=== PATIENT | female | born 1975 | race Caucasian/White ===

== ENCOUNTER 2016-10-24 06:42 | Inpatient (IN) | payer MEDICARE, MEDICAID ==
[2016-10-24 07:19] LABS: Hematocrit 42 % (35-47); Hemoglobin 14.2 g/dl (12.0-16.0); Mean Corpuscular HGB Conc 34 g/dl (31-36); Mean Corpuscular Hemoglobin 30 pg (27-31); Mean Corpuscular Volume 90 fL (80-97); Mean Platelet Volume 7 um3 (7.4-10.4); Red Blood Count 4.69 10^6/ul (4.0-5.4); Red Cell Distribution Width 16 % (10.5-15); White Blood Count 6.7 10^3/ul (3.5-10.8)
[2016-10-24 07:21] LABS: Add Diff/Slide Review? Slide Review Added; Comments Flag Yes
[2016-10-24 07:35] LABS: ALT 4 U/L (7-52); AST 16 U/L (13-39); Albumin 4.5 g/dL (3.2-5.2); Alkaline Phosphatase 52 U/L (34-104); Anion Gap 6 mmol/L (2-11); BUN/Creatinine Ratio 15.9 (8-20); Blood Urea Nitrogen 14 mg/dL (6-24); CO2 Carbon Dioxide 29 mmol/L (22-32); Calcium 9.6 mg/dL (8.6-10.3); Chloride 101 mmol/L (101-111); EGFR African American 90.6 (>60); EGFR Non-African American 70.5 (>60); Globulin 3.2 g/dL (2-4); Glucose 85 mg/dL (70-100); Potassium 3.5 mmol/L (3.5-5.0); Sodium 136 mmol/L (133-145); Total Protein 7.7 g/dL (6.4-8.9)
[2016-10-24 07:41] LABS: Benzodiazepine Urine Screen None Detected (None Detect)
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
[2016-10-24 07:57] LABS: Urine Bacteria Absent (Absent); Urine Bilirubin Negative (Negative); Urine Glucose Negative (Negative); Urine Nitrite Negative (Negative)
[2016-10-24 08:04] LABS: Acetaminophen < 15 mcg/mL; Alcohol < 10 mg/dL (<10); Salicylate < 2.50 mg/dL (<30)
[2016-10-24 08:14] LABS: TSH (Thyroid Stimulating Horm) 3.08 mcIU/mL (0.34-5.60)
[2016-10-24] MEDS ORDERED: Nicotine Inhaler* 10 MG AMP INH PRN (11:05)
[2016-10-24] MEDS ORDERED: diPHENhydraMINE PO* 50 MG PO PRN (13:02)
[2016-10-24] MEDS: clonazePAM TAB(*) 1 MG PO SCH (20:57)
[2016-10-24] MEDS: CMCS: Lurasidone (NF) 20 MG TAB PO SCH (20:57)
[2016-10-24] MEDS: Amitriptyline TAB* 10 MG PO SCH (20:57)
[2016-10-24] MEDS ORDERED: Divalproex DR TAB(*) 500 MG PO SCH (21:00)
--- NOTE | 2016-10-25 06:26 | PN ---
Progress Note - Progress Note Note: Notified by RN of Critical value of Valproic Acid level -directed her to contact poison control for recommendations -stopped Depakote -ordered stat VPA level Impression-likely inadvertent toxic level. Generally cases of valproate ovedose are benign. Patient has not been demonstrating any of these: -hyperthermia/hypothermia -tachycardia/hypotension -respiratory depression -stupor/coma, ataxia Plan: stat VPA level to determine trend, poison control consult, q4h vitals, neuro checks.
[2016-10-25] MEDS ORDERED: Mouth Piece, Nicotine* 1 EACH CARTRIDGE ONE (07:36)
[2016-10-25] MEDS: Oxybutynin XL TAB* 5 MG PO SCH (07:37)
[2016-10-25 07:46] LABS: ALT 4 U/L (7-52); Alkaline Phosphatase 38 U/L (34-104); BUN/Creatinine Ratio 19.7 (8-20); Blood Urea Nitrogen 13 mg/dL (6-24); CO2 Carbon Dioxide 24 mmol/L (22-32); Calcium 8.5 mg/dL (8.6-10.3); Chloride 105 mmol/L (101-111); EGFR African American 126.3 (>60); EGFR Non-African American 98.2 (>60); Globulin 2.4 g/dL (2-4); Glucose 83 mg/dL (70-100); Sodium 135 mmol/L (133-145); Total Protein 5.4 g/dL (6.4-8.9)
--- NOTE | 2016-10-25 08:23 | PN ---
Progress Note - Progress Note Note: Psychiatry Case discussed with Dr. Tena, we agreed- - based on apparent subacute toxicity, further evaluations needed (hospitalist consult to assist with that) - based on favorable VPA trend, and patients Vitals and neuro status, she is in the clear as to acute cardiovascular risk and LOT ASSOCIATE/respiratory effect, and does not require transfer to medical floor.
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
[2016-10-25] MEDS: Nicotine PATCH 14 MG/24 HR* PATCH TRANSDERM SCH (12:58)
--- NOTE | 2016-10-25 13:45 | PN ---
MHU: Group Therapy Note - Service Type Service Type: 63661 Group Psychotherapy - Cognitive Behavioral Group Therapy ( CBT):Patient was attentive and participatory in CBT programming this morning, and remained in good behavioral control. Patient expressed positive insights regarding relevant treatment interventions and goals.
[2016-10-25] MEDS: Amitriptyline TAB* 10 MG PO SCH (20:13)
[2016-10-25] MEDS: clonazePAM TAB(*) 1 MG PO SCH (20:13)
[2016-10-25] MEDS: CMCS: Lurasidone (NF) 20 MG TAB PO SCH (20:14)
[2016-10-25] MEDS: Nicotine Patch Removal NOTE PATCH OFF SCH (20:15)
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
[2016-10-26 07:46] LABS: Albumin 3.2 g/dL (3.2-5.2); BUN/Creatinine Ratio 18.3 (8-20); Calcium 9.1 mg/dL (8.6-10.3); EGFR African American 116.1 (>60); EGFR Non-African American 90.3 (>60); Globulin 2.4 g/dL (2-4); Potassium 4.6 mmol/L (3.5-5.0); Total Bilirubin 0.2 mg/dL (0.2-1.0); Total Protein 5.6 g/dL (6.4-8.9)
[2016-10-26] MEDS: Nicotine PATCH 14 MG/24 HR* PATCH TRANSDERM SCH (08:37)
[2016-10-26] MEDS: Oxybutynin XL TAB* 5 MG PO SCH ×2 (08:38→20:34)
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
--- NOTE | 2016-10-26 17:02 | PN ---
Subjective Date of Service: 10/26/16 Interval History: Patient continues to feel well. She reports some anxiety, but denies abdominal pain, n/v, CP or SOB. Objective Active Medications: Amitriptyline HCl (Elavil Tab*) 10 mg PO BEDTIME [facility] Last Admin: 10/25/16 20:13 Dose: 10 mg Clonazepam (Klonopin Tab(*)) 0.5 mg PO BEDTIME [facility] Diphenhydramine HCl (Benadryl Po*) 50 mg PO BEDTIME PRN PRN Reason: INSOMNIA Lurasidone HCl (Latuda (Nf)) 60 mg PO BEDTIME [facility] Last Admin: 10/25/16 20:14 Dose: 60 mg Nicotine (Nicotine Inhaler*) 10 mg INH Q2H PRN PRN Reason: CRAVING Last Admin: 10/25/16 07:37 Dose: 10 mg Nicotine (Nicotine Patch 14 Mg/24 Hr*) 1 patch TRANSDERM DAILY@0800 [facility] Last Admin: 10/26/16 08:37 Dose: 1 patch Oxybutynin Chloride (Ditropan Xl Tab*) 5 mg PO BEDTIME [facility] Pharmacy Profile Note (Nicotine Patch Removal Note*) 1 note PATCH OFF 2100 [facility] Last Admin: 10/25/16 20:15 Dose: 1 note Vital Signs: Temp Pulse Resp BP Pulse Ox 97.8 F 80 16 106/63 100 10/26/16 11:58 10/26/16 15:51 10/26/16 11:58 10/26/16 15:51 10/26/16 11:58 Appearance: Well appearing, mildly anxious, but in NAD Respiratory: Symmetrical Chest Expansion and Respiratory Effort, Clear to Auscultation Cardiovascular: NL Sounds; No Murmurs; No JVD, RRR Extremities: No Edema Skin: No Rash or Ulcers Neurological: Alert and Oriented x 3 Result Diagrams: 10/24/16 07:00 10/26/16 07:09 Additional Lab and Data: Laboratory Tests 10/25/16 10/26/16 10/26/16 06:58 07:09 07:10 Total Bilirubin 0.20 AST 13 ALT 3 L Alkaline Phosphatase 45 Ammonia 65 H 56 H Laboratory Tests 10/24/16 10/25/16 10/26/16 07:00 06:58 07:09 Valproic Acid 225.0 H* 164.0 H* 69.0 Assess/Plan/Problems-Billing Assessment: This is a 41 yo female admitted to the [facility], Hospitalist service has been asked to consult for Depakote toxicity that is likely chronic. - Patient Problems (1) Valproic acid toxicity Comment: Valproic acid levels have improved to therapeutic range No symptoms of toxicity No transaminitis, mildly elevated ammonia that has improved EKG shows a normal QRS length and QTc Depakote may be resumed at half of her prior dose if clinically indicated at this time. Status and Disposition: Continued care per psychiatry. Hospitalist group will sign off at this time but are happy to re-examine if there is an acute change in status.
[2016-10-26] MEDS: Amitriptyline TAB* 10 MG PO SCH (20:33)
[2016-10-26] MEDS: CMCS: Lurasidone (NF) 20 MG TAB PO SCH (20:33)
[2016-10-26] MEDS: clonazePAM TAB(*) 0.5 MG PO SCH (20:33)
[2016-10-26] MEDS: Nicotine Patch Removal NOTE PATCH OFF SCH (20:35)
[2016-10-27] MEDS: Nicotine PATCH 14 MG/24 HR* PATCH TRANSDERM SCH (09:11)
[2016-10-27] MEDS: Oxybutynin XL TAB* 5 MG PO SCH (20:13)
[2016-10-27] MEDS: Amitriptyline TAB* 10 MG PO SCH (20:13)
[2016-10-27] MEDS: clonazePAM TAB(*) 0.5 MG PO SCH (20:14)
[2016-10-27] MEDS: CMCS: Lurasidone (NF) 20 MG TAB PO SCH (20:14)
[2016-10-27] MEDS: Nicotine Patch Removal NOTE PATCH OFF SCH (20:15)
[2016-10-28] MEDS ORDERED: Influenza VAC *QUAD* 2016-17* 0.5 ML SYRINGE IM ONE (09:00)
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
[2016-10-28] MEDS: Nicotine PATCH 14 MG/24 HR* PATCH TRANSDERM SCH (09:31)
[2016-10-28] MEDS: Oxybutynin XL TAB* 5 MG PO SCH (20:06)
[2016-10-28] MEDS: CMCS: Lurasidone (NF) 20 MG TAB PO SCH (20:06)
[2016-10-28] MEDS: Amitriptyline TAB* 10 MG PO SCH (20:06)
[2016-10-28] MEDS: clonazePAM TAB(*) 0.5 MG PO SCH (20:06)
[2016-10-28] MEDS: Nicotine Patch Removal NOTE PATCH OFF SCH (20:08)
[2016-10-29] MEDS: Nicotine PATCH 14 MG/24 HR* PATCH TRANSDERM SCH (09:37)
--- NOTE | 2016-10-29 11:44 | PN ---
MHU: Group Therapy Note - Service Type Service Type: [id number] Group Psychotherapy - Cognitive Behavioral Group Therapy ( CBT):Patient was attentive and participatory in CBT programming this morning, and remained in good behavioral control. Patient expressed positive insights regarding relevant treatment interventions and goals.
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
[2016-10-29] MEDS: Gabapentin CAP(*) 100 MG PO SCH ×2 (13:59→20:08)
[2016-10-29] MEDS: Amitriptyline TAB* 10 MG PO SCH (20:08)
[2016-10-29] MEDS: Oxybutynin XL TAB* 5 MG PO SCH (20:09)
[2016-10-29] MEDS: CMCS: Lurasidone (NF) 20 MG TAB PO SCH (20:12)
[2016-10-29] MEDS: Nicotine Patch Removal NOTE PATCH OFF SCH (20:12)
[2016-10-30] MEDS: Nicotine PATCH 14 MG/24 HR* PATCH TRANSDERM SCH (08:37)
[2016-10-30] MEDS: Gabapentin CAP(*) 100 MG PO SCH ×3 (08:38→20:25)
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
--- NOTE | 2016-10-30 12:51 | PN ---
MHU: Group Therapy Note - Service Type Service Type: [id number] Group Psychotherapy - Cognitive Behavioral Group Therapy ( CBT):Patient was attentive and participatory in CBT programming this morning, and remained in good behavioral control. Patient expressed positive insights regarding relevant treatment interventions and goals.
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
[2016-10-30] MEDS: Oxybutynin XL TAB* 5 MG PO SCH (20:25)
[2016-10-30] MEDS: CMCS: Lurasidone (NF) 20 MG TAB PO SCH (20:25)
[2016-10-30] MEDS: Amitriptyline TAB* 10 MG PO SCH (20:25)
[2016-10-30] MEDS: Nicotine Patch Removal NOTE PATCH OFF SCH (20:26)
[2016-10-31 07:31] LABS: Hematocrit 36 % (35-47); Hemoglobin 11.7 g/dl (12.0-16.0); Mean Corpuscular HGB Conc 33 g/dl (31-36); Mean Corpuscular Hemoglobin 30 pg (27-31); Mean Corpuscular Volume 91 fL (80-97); Mean Platelet Volume 7 um3 (7.4-10.4); Red Blood Count 3.91 10^6/ul (4.0-5.4); Red Cell Distribution Width 16 % (10.5-15); White Blood Count 9.6 10^3/ul (3.5-10.8)
[2016-10-31 07:34] LABS: Add Diff/Slide Review? Slide Review Added; Comments Flag Yes
[2016-10-31 07:40] LABS: ALT 11 U/L (7-52); AST 16 U/L (13-39); Albumin 3.5 g/dL (3.2-5.2); Alkaline Phosphatase 46 U/L (34-104); Globulin 2.7 g/dL (2-4); Total Protein 6.2 g/dL (6.4-8.9)
[2016-10-31] MEDS: Gabapentin CAP(*) 100 MG PO SCH ×2 (08:22→14:12)
[2016-10-31] MEDS: Nicotine PATCH 14 MG/24 HR* PATCH TRANSDERM SCH (08:23)
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
--- NOTE | 2016-10-31 11:31 | PN ---
[facility]: Group Therapy Note - Service Type Service Type: 98811 Group Psychotherapy - Cognitive Behavioral Group Therapy ( CBT):Patient was attentive and participatory in CBT programming this morning, and remained in good behavioral control. Patient expressed positive insights regarding relevant treatment interventions and goals.
[2016-10-31 14:47] LABS: Valproic Acid < 13.0 mcg/mL (50-100)
[2016-10-31 16:10] VITALS: BP 123/55
== END 2016-10-31 15:33 | disposition home or self-care (01) | DRG 884 ==
LOC: ED 06:42 → BSU 14:15
PROVIDERS: ADMIT Psychiatry & Neurology Psychiatry; ATTEND Psychiatry & Neurology Psychiatry
DX: F09 Unspecified mental disorder due to known physiological condition (principal); F31.81 Bipolar II disorder; F43.10 Post-traumatic stress disorder, unspecified; F14.10 Cocaine abuse, uncomplicated; F10.10 Alcohol abuse, uncomplicated; F12.10 Cannabis abuse, uncomplicated; F15.10 Other stimulant abuse, uncomplicated; T42.6X5A Adverse effect of other antiepileptic and sedative-hypnotic drugs, initial encounter; F90.9 Attention-deficit hyperactivity disorder, unspecified type; F60.3 Borderline personality disorder; Y92.9 Unspecified place or not applicable; Z81.3 Family history of other psychoactive substance abuse and dependence; Z79.899 Other long term (current) drug therapy; Z81.8 Family history of other mental and behavioral disorders
CPT/HCPCS: 36415; 80053; 80076; 80164; 80307; 80320; 80329; 81003; 81015; 82140; 84443; 85025; 87086; 90853; 93005; 96102; 99222; 99231; 99238; A9270-GY; G0480

== ENCOUNTER 2016-12-24 22:41 | Inpatient (IN) | payer MEDICARE, MEDICAID ==
[2016-12-24 23:38] LABS: Urine Bacteria Absent (Absent); Urine Bilirubin Negative (Negative); Urine Glucose Negative (Negative); Urine Nitrite Negative (Negative)
[2016-12-25] LABS: Hematocrit 38 % (35-47); Hemoglobin 12.8 g/dl (12.0-16.0); Mean Corpuscular HGB Conc 34 g/dl (31-36); Mean Corpuscular Hemoglobin 30 pg (27-31); Mean Corpuscular Volume 89 fL (80-97); Mean Platelet Volume 6 um3 (7.4-10.4); Red Blood Count 4.26 10^6/ul (4.0-5.4); Red Cell Distribution Width 14 % (10.5-15); White Blood Count 10.2 10^3/ul (3.5-10.8)
[2016-12-25 00:07] LABS: Benzodiazepine Urine Screen None Detected (None Detect)
[2016-12-25 00:12] LABS: ALT 11 U/L (7-52); AST 17 U/L (13-39); Albumin 4.5 g/dL (3.2-5.2); Alkaline Phosphatase 69 U/L (34-104); Anion Gap 11 mmol/L (2-11); BUN/Creatinine Ratio 16.3 (8-20); Blood Urea Nitrogen 13 mg/dL (6-24); CO2 Carbon Dioxide 23 mmol/L (22-32); Calcium 9.8 mg/dL (8.6-10.3); Chloride 102 mmol/L (101-111); EGFR African American 101.2 (>60); EGFR Non-African American 78.7 (>60); Globulin 2.9 g/dL (2-4); Glucose 161 mg/dL (70-100); Potassium 3.4 mmol/L (3.5-5.0); Sodium 136 mmol/L (133-145); Total Protein 7.4 g/dL (6.4-8.9)
[2016-12-25 00:36] LABS: Acetaminophen < 15 mcg/mL; Alcohol < 10 mg/dL (<10); Salicylate < 2.50 mg/dL (<30)
[2016-12-25 01:08] LABS: TSH (Thyroid Stimulating Horm) 0.84 mcIU/mL (0.34-5.60)
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
--- NOTE | 2016-12-25 08:24 | PN ---
Progress Note - Progress Note Note: Patient complains of right eye contact lens stuck in the eye. She is unable to visualized the contact and has bee touching the eye to try to dislodge the contact. She has been informed she has had a corneal tear in the past and is at risk for another one. She is concerned that the contact lens is stuck on the eye and is creating pain. She states vision is blurry, so possibly the contact is no longer present in the eye. Slit Lamp exam: Tetracaine with fluoroscein stain applied to the left eye. Slit lamp used to detect foreign body no foreign body visualized. patient reassured that contact lens has been dislodged. Patient tolerated procedure well and OK with plan.
[2016-12-25] MEDS ORDERED: clonazePAM TAB(*) 0.5 MG PO ONE (10:57)
[2016-12-25] MEDS ORDERED: Mouth Piece, Nicotine* 1 EACH CARTRIDGE INH PRN (10:57)
[2016-12-25] MEDS ORDERED: clonazePAM TAB(*) 0.5 MG ONE (10:59)
[2016-12-25] MEDS ORDERED: Mouth Piece, Nicotine* 1 EACH CARTRIDGE ONE (11:00)
[2016-12-25] MEDS: Gabapentin CAP(*) 100 MG PO SCH ×3 (11:23→20:16)
[2016-12-25] MEDS: Nicotine Inhaler* 10 MG AMP INH PRN ×2 (11:24→18:13)
[2016-12-25] MEDS ORDERED: LURASIDONE 60 MG PO SCH (21:00)
[2016-12-25] MEDS ORDERED: Amitriptyline TAB* 10 MG PO SCH (21:00)
[2016-12-25] MEDS: LURASIDONE 60 MG PO SCH (22:32)
[2016-12-25] MEDS ORDERED: hydrOXYzine HCL TAB* 50 MG ONE (23:57)
[2016-12-26] MEDS: AMITRIPTYLINE 10 MG PO SCH ×2 (00:01→20:33)
[2016-12-26] MEDS: Oxybutynin TAB* 5 MG PO SCH ×2 (00:17→00:49)
[2016-12-26] MEDS ORDERED: hydrOXYzine HCL TAB* 50 MG PO ONE (01:00)
[2016-12-26] MEDS: Gabapentin CAP(*) 100 MG PO SCH (07:42)
[2016-12-26] MEDS ORDERED: Thiamine IV* 100 MG/ML 2 ML VIAL IM ONE (11:10)
[2016-12-26] MEDS ORDERED: LORazepam TAB(*) 1 MG PO SCH (12:00)
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
[2016-12-26] MEDS: Gabapentin CAP(*) 400 MG PO SCH ×2 (13:54→20:32)
[2016-12-26] MEDS: Oxybutynin XL TAB* 5 MG PO SCH (13:54)
[2016-12-26] MEDS: Acetaminophen TAB* 325 MG PO PRN (13:55)
[2016-12-26] MEDS: hydrOXYzine HCL TAB* 25 MG PO PRN ×2 (15:25→20:34)
[2016-12-26] MEDS: Nicotine Patch Removal NOTE FOLLOW UP SCH (20:33)
[2016-12-26] MEDS: LURASIDONE 60 MG PO SCH (20:33)
[2016-12-27] MEDS: hydrOXYzine HCL TAB* 25 MG PO PRN ×5 (01:58→23:09)
[2016-12-27] MEDS: Nicotine PATCH 7 MG/24 HR* PATCH TRANSDERM SCH (08:40)
[2016-12-27] MEDS: Gabapentin CAP(*) 400 MG PO SCH ×3 (08:41→20:25)
[2016-12-27] MEDS: Folic Acid TAB* 1 MG PO SCH (08:41)
[2016-12-27] MEDS: Oxybutynin XL TAB* 5 MG PO SCH (08:41)
[2016-12-27] MEDS: Multivitamins/Minerals TAB PO SCH (08:41)
[2016-12-27] MEDS: Thiamine TAB* 100 MG TAB PO SCH (08:41)
[2016-12-27] MEDS: Nicotine Inhaler* 10 MG AMP INH PRN (08:43)
--- NOTE | 2016-12-27 10:30 | PN ---
Subjective - Subjective Service Type: 19039 Hosp care 15 min low complexity Subjective: Eugene said "I realized you are right" - noting "stumbling into the door of an AA meeting last night." She reports being committed to sobriety and in agreement with avoiding benzodiazepines: "I need my brain" (Implying she recognized the medication can be impairing). She did not commit to enrollment in aftercare program for substance abuse, but said she would consider them. She reports easily tolerable symptoms of withdrawal, which at this time are not bothering her at all. We reviewed plan for gabapentin use. Objective - Appearance Appearance: Healthy Appearing Hygiene: Normal Grooming: Well Kept - Behavior Psychomotor Activities: Normal - Attitude and Relatedness Attitude and Relatedness: Superficially Cooperative Eye Contact: Good - Speech Quality: Unpressured Latencies: Normal Quantity: Appropriate - Mood Patient's Decription of Mood: "Good" - Affect Observed Affect: Non-labile Affect Consistent with: Euthymia - Thought Process Patient's Thought Process: Coherent Thought Content: No Passive Wish, No Suicidal Planning, No Homicidal Ideation, No Paranoid Ideation - Sensorium Experiencing Hallucinations: No, Sensorium is Clear - Level of Consciousness Level of Consciousness: Alert - Impulse Control Impulse Control: Intact - Insight and Judgement Insight and Judgement: Fair Assessment - Assessment Merits Inpatient Hospitalization: To Initiate Treatment, For Ongoing Evaluation , Consolidate Improvements, For Discharge Planning Inpatient DSM-IV Dx: Amphetamine, cannabis, benzodiazepine and alcohol use disorders; mood disorder, not otherwise specified; anxiety state; rule out substance-induced psychotic disorder; rule out posttraumatic stress disorder; rule out cognitive disorder, not otherwise specified. Clinical Impression: Irwos[age]nnh[age]gkcx-old female with chronic severe substance use disorders, consideration for bipolar 2, PTSD, borderline personality disorder with a prior history of self-harm and apparent relative long-term decrease in cognitive acuity. She presented in an immediate crisis of suicidal ideation in the setting of some relationship conflict, but subacutely had been abusing amphetamines or amphetamine medication, cannabis. Stabilizing here. Improved clinically, with reduced distress, absence of ongoing suicidal ideation , brighter mood and outlook. She is safe on checks, adherent with routines. Engagement is improved - she has confronted her substance use disorders and recognized appropriateness of some change. Medication management involves continuing the outpatient regimen with the exception of Clonazepam which has an unacceptably high risk in this patient and has probably already caused her some cognitive decline. For possible withdrawal symptoms the [facility] protocol is in place (she has not required treatment so far). I increased dose of her Gabapentin, which in an off-labeled application can help anxiety and ease benzodiazepine withdrawal. And hydroxyzine is available PRN anxiety. Discharge planning will involve coordination of appropriate aftercare and an effort to engage patient for rehabilitation services. Plan - Plan Treatment Plan: Name: WOODROW ARECHIGA Birthdate: 1975 [id number] Continued Medication Management: Different Medication Medications: Current Medications Acetaminophen (Tylenol Tab*) 650 mg PO Q4H PRN PRN Reason: PAIN Last Admin: 12/26/16 13:55 Dose: 650 mg Amitriptyline HCl (Elavil Tab*) 10 mg PO BEDTIME [facility] Last Admin: 12/26/16 20:33 Dose: 10 mg Device (Nicotine Mouth Piece*) 1 each INH .USE WITH NICOTROL PRN PRN Reason: CRAVING Last Admin: 12/25/16 11:23 Dose: 1 each Folic Acid (Folvite Tab*) 1 mg PO DAILY [facility] Last Admin: 12/27/16 08:41 Dose: 1 mg Gabapentin (Neurontin Cap(*)) 400 mg PO TID [facility] Last Admin: 12/27/16 08:41 Dose: 400 mg Hydroxyzine HCl (Atarax Tab*) 25 mg PO Q4H PRN PRN Reason: ANXIETY Last Admin: 12/27/16 08:41 Dose: 25 mg Lorazepam (Ativan Tab(*)) 0 mg PO .PER WAM SCORE [facility] PRN Reason: Protocol Lurasidone HCl (Latuda (Nf)) 60 mg PO 2100 [facility] Last Admin: 12/26/16 20:33 Dose: 60 mg Multivitamins/Minerals (Theragran/Minerals Tab*) 1 tab PO DAILY [facility] Last Admin: 12/27/16 08:41 Dose: 1 tab Nicotine (Nicotine Inhaler*) 10 mg INH Q2H PRN PRN Reason: CRAVING Last Admin: 12/27/16 08:43 Dose: 10 mg Nicotine (Nicotine Patch 7 Mg/24 Hr*) 1 patch TRANSDERM DAILY@0800 [facility] Last Admin: 12/27/16 08:40 Dose: 1 patch Oxybutynin Chloride (Ditropan Xl Tab*) 5 mg PO DAILY [facility] Last Admin: 12/27/16 08:41 Dose: 5 mg Pharmacy Profile Note (Nicotine Patch Removal Note*) 1 note FOLLOW UP 2100 [facility] Last Admin: 12/26/16 20:33 Dose: Not Given Thiamine HCl (Vitamin B-1 Tab*) 100 mg PO DAILY [facility] Last Admin: 12/27/16 08:41 Dose: 100 mg - Discharge Plan Discharge Plan: Drug/Alcohol Rehab
--- NOTE | 2016-12-27 14:08 | PN ---
MHU: Group Therapy Note - Service Type Service Type: [id number] Group Psychotherapy - Cognitive Behavioral Group Therapy ( CBT):Patient was attentive and participatory in CBT programming this morning, and remained in good behavioral control. Patient expressed positive insights regarding relevant treatment interventions and goals.
[2016-12-27] MEDS: Nicotine Patch Removal NOTE FOLLOW UP SCH (20:24)
[2016-12-27] MEDS: LURASIDONE 60 MG PO SCH (20:25)
[2016-12-27] MEDS: AMITRIPTYLINE 10 MG PO SCH (20:25)
[2016-12-28 08:08] VITALS: BP 107/71
[2016-12-28] MEDS: hydrOXYzine HCL TAB* 25 MG PO PRN ×2 (08:31→12:22)
[2016-12-28] MEDS: Gabapentin CAP(*) 400 MG PO SCH ×2 (08:31→13:29)
[2016-12-28] MEDS: Acetaminophen TAB* 325 MG PO PRN (08:31)
[2016-12-28] MEDS: Thiamine TAB* 100 MG TAB PO SCH (08:32)
[2016-12-28] MEDS: Multivitamins/Minerals TAB PO SCH (08:32)
[2016-12-28] MEDS: Nicotine Inhaler* 10 MG AMP INH PRN (08:32)
[2016-12-28] MEDS: Oxybutynin XL TAB* 5 MG PO SCH (08:32)
[2016-12-28] MEDS: Folic Acid TAB* 1 MG PO SCH (08:32)
[2016-12-28] MEDS: Nicotine PATCH 7 MG/24 HR* PATCH TRANSDERM SCH (08:33)
--- NOTE | 2016-12-28 08:46 | PN ---
Assessment - Assessment Inpatient DSM-IV Dx: Amphetamine, cannabis, benzodiazepine and alcohol use disorders; mood disorder, not otherwise specified; anxiety state; rule out substance-induced psychotic disorder; rule out posttraumatic stress disorder; rule out cognitive disorder, not otherwise specified. Clinical Impression: Mpisq[age]duf-diel-old female with chronic severe substance use disorders, consideration for bipolar 2, PTSD, borderline personality disorder with a prior history of self-harm and apparent relative long-term decrease in cognitive acuity. She presented in an immediate crisis of suicidal ideation in the setting of some relationship conflict, but subacutely had been abusing amphetamines or amphetamine medication, cannabis. Stabilizing here. Improved clinically, with reduced distress, absence of ongoing suicidal ideation , brighter mood and outlook. She is safe on checks, adherent with routines. Engagement is improved - she has confronted her substance use disorders and recognized appropriateness of some change. Medication management involves continuing the outpatient regimen with the exception of Clonazepam which has an unacceptably high risk in this patient and has probably already caused her some cognitive decline. For possible withdrawal symptoms the [facility] protocol is in place (she has not required treatment so far). I increased dose of her Gabapentin, which in an off-labeled application can help anxiety and ease benzodiazepine withdrawal. And hydroxyzine is available PRN anxiety. Discharge planning will involve coordination of appropriate aftercare and an effort to engage patient for rehabilitation services. Plan - Plan Treatment Plan: Name: WOODROW ARECHIGA Birthdate: 1975 [id number] Medications: Current Medications Acetaminophen (Tylenol Tab*) 650 mg PO Q4H PRN PRN Reason: PAIN Last Admin: 12/28/16 08:31 Dose: 650 mg Amitriptyline HCl (Elavil Tab*) 10 mg PO BEDTIME [facility] Last Admin: 12/27/16 20:25 Dose: 10 mg Device (Nicotine Mouth Piece*) 1 each INH .USE WITH NICOTROL PRN PRN Reason: CRAVING Last Admin: 12/25/16 11:23 Dose: 1 each Folic Acid (Folvite Tab*) 1 mg PO DAILY [facility] Last Admin: 12/28/16 08:32 Dose: 1 mg Gabapentin (Neurontin Cap(*)) 400 mg PO TID [facility] Last Admin: 12/28/16 08:31 Dose: 400 mg Hydroxyzine HCl (Atarax Tab*) 25 mg PO Q4H PRN PRN Reason: ANXIETY Last Admin: 12/28/16 08:31 Dose: 25 mg Lorazepam (Ativan Tab(*)) 0 mg PO .PER WAM SCORE [facility] PRN Reason: Protocol Lurasidone HCl (Latuda (Nf)) 60 mg PO 2099 [facility] Last Admin: 12/27/16 20:25 Dose: 60 mg Multivitamins/Minerals (Theragran/Minerals Tab*) 1 tab PO DAILY [facility] Last Admin: 12/28/16 08:32 Dose: 1 tab Nicotine (Nicotine Inhaler*) 10 mg INH Q2H PRN PRN Reason: CRAVING Last Admin: 12/28/16 08:32 Dose: 10 mg Nicotine (Nicotine Patch 7 Mg/24 Hr*) 1 patch TRANSDERM DAILY@0800 [facility] Last Admin: 12/28/16 08:33 Dose: 1 patch Oxybutynin Chloride (Ditropan Xl Tab*) 5 mg PO DAILY [facility] Last Admin: 12/28/16 08:32 Dose: 5 mg Pharmacy Profile Note (Nicotine Patch Removal Note*) 1 note FOLLOW UP 2099 [facility] Last Admin: 12/27/16 20:24 Dose: 1 note Thiamine HCl (Vitamin B-1 Tab*) 100 mg PO DAILY [facility] Last Admin: 12/28/16 08:32 Dose: 100 mg
--- NOTE | 2016-12-28 11:45 | PN ---
MHU: Group Therapy Note - Service Type Service Type: [id number] Psychotherapy - individual psychotherapy note: Eugene impresses as improving markedly since admission. Initial concerns pertain to possible disorganization in thought secondary to her presenting problems which culminated in her admission. Her thought processes impress as having cleared quickly in the context of sobriety and proper sleep hygiene. She presently is able to discuss her concerns in an organized and coherent fashion, and is demonstrating positive insight regarding role of various medication and recreational drug use have had on her emotional, behavior and intellectual functioning. Clinical interventions have emphasized adverse effect senior living use of benzodiazepines have had on cognitive processing abilities, especially in the context of mixed use with stimulants. She is expressing intentions of compliance with outpatient follow up at [facility] and [facility].
--- NOTE | 2016-12-28 13:14 | DS ---
Subjective - Subjective Service Types: [address] [facility] [place] Day Mgmt simple under 30 min Discharge Date: 12/28/16 Subjective: Yaron submitted a 72 hr. letter demanding release yesterday, and affirms with me she continues with her demand. This morning, she was ambivalent in talking with SW - noting sense she would relapse outside this setting. At this time she says she is reassured by having a [facility] appt[facility] for saturday, and plans to access AA over the weekend. She declines continued stay on voluntary basis. She denies any wishes and we both see main risk is that she could relapse on drugs/controlled substances. She denies emotional pain and says her anxiety is mainly due to distance from her son. We reviewed medication change (higher gabapentin - she opts to continue) and aftercare plan. She said subjective clonazepam withdrawal is dramatically improved, and tolerable. She said she sees no barriers to routine support and care, or emergency help if needed again. Objective - Appearance Appearance: Thin Framed Hygiene: Normal Grooming: Well Kept - Behavior Psychomotor Activities: Normal - Attitude and Relatedness Attitude and Relatedness: Appropriate Eye Contact: Good - Speech Quality: Unpressured Latencies: Normal Quantity: Appropriate - Mood Patient's Decription of Mood: "Anxious" - Affect Observed Affect: Non-labile Affect Consistent with: Euthymia - Thought Process Patient's Thought Process: Coherent, Goal Directed Thought Content: No Passive Wish, No Suicidal Planning, No Homicidal Ideation, No Paranoid Ideation - Sensorium Experiencing Hallucinations: No, Sensorium is Clear - Level of Consciousness Level of Consciousness: Alert - Impulse Control Impulse Control: Intact - Insight and Judgement Insight and Judgement: Fair Treatment Course & Assessment Clinical Course & Impression: [id number]old female with chronic severe substance use disorders, consideration for bipolar 2, PTSD, borderline personality disorder with a prior history of self-harm and apparent relative long-term decrease in cognitive acuity. She presented in an immediate crisis of suicidal ideation in the setting of some relationship conflict, but subacutely had been abusing amphetamines or amphetamine medication, cannabis. 12/28/16 Clear for release. Eugene stabilized here and improved clinically. She attained significantly reduced distress, sustained absence of ongoing suicidal ideation, brighter mood and resumed positive outlook. She was safe on checks, adherent with routines. She was initially quite defended, opposing our concerns about risks with clonazepam and harm associated with her substance use. Her engagement improved rapidly - she at least superficially has confronted her substance use disorders , endorsed avoiding controlled prescriptions, and accepted referral back to substance abuse treatment (ABE). Medication management involved continuing the outpatient regimen with the exception of Clonazepam which has an unacceptably high risk in this patient and has probably already caused her some cognitive decline. For possible withdrawal symptoms the [facility] protocol has been in place (she has not required treatment under it, withdrawal was sub-clinical). I increased the dose of her Gabapentin, which in an off-labeled application can help anxiety and ease benzodiazepine withdrawal. And we made hydroxyzine available on PRN basis for anxiety. Given her progress and status, she does not meet criteria for retention over her capable demand for release. Risk concerns center on her suicidal statements, and her risk for unintentional harm due to impairment with her substance use pattern. Acute suicide risk is assessed as low now, on basis of Yaron's low symptom burden, absence of acute impairment, and benign ideation/behavior. We interrupted her pattern of substance abuse and the acute aspects of her impairment is corrected. Resumed high risk substance or medication use could increase her risk again. Yaron's diagnoses and profile represent chronic risk factors for suicide. Clear for Discharge: Adequate Clinical Respons, Acceptable Safety Profile Inpatient DSM-IV Dx: Amphetamine, cannabis, benzodiazepine and alcohol use disorders; mood disorder, not otherwise specified; anxiety state; rule out substance-induced psychotic disorder; rule out posttraumatic stress disorder; rule out cognitive disorder, not otherwise specified. Discharge Planning - Discharge Planning Discharge Plan: Outpatient Follow Up Outpatient Program: Rei Uriarte, [facility] Recommendations for Continuing Care: Medication Management - avoid medicines of high abuse potential, Psychotherapy, Substance Abuse Counseling, Primary Care Followup Medications: Current Medications Amitriptyline HCl (Elavil Tab*) 10 mg PO BEDTIME [facility] Last Admin: 12/27/16 20:25 Dose: 10 mg Gabapentin (Neurontin Cap(*)) 400 mg PO TID [facility] (DOSAGE CHANGE) Last Admin: 12/28/16 08:31 Dose: 400 mg Hydroxyzine HCl (Atarax Tab*) 25 mg PO Q4H PRN PRN Reason: ANXIETY Last Admin: 12/28/16 12:22 Dose: 25 mg Lurasidone HCl (Latuda (Nf)) 60 mg PO 2100 [facility] Last Admin: 12/27/16 20:25 Dose: 60 mg Nicotine (Nicotine Inhaler*) 10 mg INH Q2H PRN PRN Reason: CRAVING Last Admin: 12/28/16 08:32 Dose: 10 mg Oxybutynin Chloride (Ditropan Xl Tab*) 5 mg PO DAILY [facility] Last Admin: 12/28/16 08:32 Dose: 5 mg * Recommendation for ongoing medication management: avoid benzodiazepines and medications of high abuse potential. Discharge Planning: Prescriptions provided for discharge [x] Yes new gabapentin dose Follow up care details as per social work arrangements. Patient response to discharge plan: [x] eager for discharge [] agreeable with discharge plan [] ambivalent about discharge [] disagrees with discharge today
== END 2016-12-28 14:00 | disposition home or self-care (01) | DRG 897 ==
LOC: ED 22:41 → BSU 12-25 17:26
PROVIDERS: ADMIT Psychiatry & Neurology Psychiatry; ATTEND Psychiatry & Neurology Psychiatry
DX: F15.10 Other stimulant abuse, uncomplicated (principal); R45.851 Suicidal ideations; F12.10 Cannabis abuse, uncomplicated; F19.10 Other psychoactive substance abuse, uncomplicated; F39 Unspecified mood [affective] disorder; J45.909 Unspecified asthma, uncomplicated; K58.9 Irritable bowel syndrome, unspecified; N32.81 Overactive bladder; Z79.899 Other long term (current) drug therapy; Z81.8 Family history of other mental and behavioral disorders; Z84.89 Family history of other specified conditions; Z81.3 Family history of other psychoactive substance abuse and dependence; H57.11 Ocular pain, right eye
CPT/HCPCS: 36415; 80053; 80307; 80320; 80329; 81003; 81015; 84443; 84702; 85025; 87086; 90853; 99222; 99231; 99238; 99406; A9270-GY; G0480

== ENCOUNTER 2020-03-04 12:18 | Inpatient (IN) ==
[2020-03-04] MEDS ORDERED: LORazepam 1 mg TAB (*) PO ONE ×2 (12:49→16:04)
[2020-03-04 13:30] LABS: ABS Basophils 0.1 10^3/ul (0-0.2); ABS Lymphocytes 2.7 10^3/ul (1.0-4.8); ABS Monocytes 0.7 10^3/ul (0-0.8); Eosinophil % 0.2 %; Hematocrit 44 % (35-47); Hemoglobin 14.7 g/dL (12.0-16.0); Lymphocyte % 22.5 %; Mean Corpuscular HGB Conc 34 g/dL (31-36); Mean Corpuscular Hemoglobin 29 pg (27-31); Mean Corpuscular Volume 85 fL (80-97); Mean Platelet Volume 6.8 fL (7.4-10.4); Nucleated Red Blood Cells % 0.1; Platelet Count 398 10^3/uL (150-450); Red Blood Count 5.12 10^6 /uL (3.70-4.87); Red Cell Distribution Width 14 % (10-15); White Blood Count 11.8 10^3/uL (3.5-10.8)
[2020-03-04 13:50] LABS: ALT 16 U/L (7-52); AST 21 U/L (13-39); Albumin 4.4 g/dL (3.2-5.2); Albumin/Globulin Ratio 1.6 (1-3); Alkaline Phosphatase 78 U/L (34-104); Anion Gap 14 mmol/L (2-11); BUN/Creatinine Ratio 20.8 (8-20); Blood Urea Nitrogen 15 mg/dL (6-24); CO2 Carbon Dioxide 18 mmol/L (22-32); Calcium 9.8 mg/dL (8.6-10.3); Chloride 108 mmol/L (101-111); EGFR Non-African American 87.6 (>60); Globulin 2.8 g/dL (2-4); Glucose 94 mg/dL (70-100); Potassium 3.5 mmol/L (3.5-5.0); Sodium 140 mmol/L (135-145); Total Protein 7.2 g/dL (6.4-8.9)
[2020-03-04 13:51] LABS: Acetaminophen < 15 mcg/mL; Alcohol, S < 10 mg/dL (<10); Salicylate < 2.50 mg/dL (<30)
[2020-03-04 14:04] LABS: TSH (Thyroid Stimulating Horm) 0.81 mcIU/mL (0.34-5.60)
[2020-03-04] MEDS ORDERED: Al Hydrox/Mg Hydrox/Simet LIQ 30 ML UDC PO PRN (15:38)
[2020-03-04] MEDS ORDERED: Albuterol HFA INHALER 8 gm MDI INH PRN (15:46)
[2020-03-04] MEDS ORDERED: LORazepam 2 mg VIAL 1 ml ONE (17:04)
[2020-03-04] MEDS ORDERED: diPHENhydraMINE IV 50 MG/ML 1 ml VIAL (BENADRYL) ONE (17:10)
[2020-03-04] MEDS ORDERED: Haloperidol 5 mg/ml SDV IV/IM 5 MG/ML AMP ONE (17:10)
[2020-03-04] MEDS: Topiramate 25 mg TAB (*) PO SCH (22:36)
[2020-03-04] MEDS: Lurasidone 120 mg TAB (*) PO SCH (22:36)
[2020-03-05] MEDS: DULoxetine DR 20 mg CAP PO SCH (12:17)
[2020-03-05] MEDS: Topiramate 25 mg TAB (*) PO SCH (12:18)
[2020-03-05] MEDS: Vitamin THERAPEUTIC TAB PO SCH (12:18)
[2020-03-05] MEDS: Mirabegron 50 mg TAB (NF) 50 MG TAB PO SCH (12:56)
[2020-03-05] MEDS: Lurasidone 120 mg TAB (*) PO SCH (16:44)
[2020-03-05] MEDS ORDERED: Nicotine GUM 4MG FRUIT FLAVOR PO ONE (16:49)
[2020-03-05] MEDS ORDERED: Nicotine PATCH 21 MG/24 HR PATCH ONE (16:49)
[2020-03-06] MEDS: Nicotine GUM 4MG FRUIT FLAVOR PO PRN (08:34)
[2020-03-06] MEDS: Nicotine PATCH 21 MG/24 HR PATCH TRANSDERM SCH (08:35)
[2020-03-06] MEDS: Vitamin THERAPEUTIC TAB PO SCH (08:35)
[2020-03-06] MEDS: Topiramate 25 mg TAB (*) PO SCH ×3 (08:35→20:32)
[2020-03-06] MEDS: DULoxetine DR 20 mg CAP PO SCH (08:35)
[2020-03-06 08:38] LABS: HDL Cholesterol 38.4 mg/dL
[2020-03-06] MEDS: Mirabegron 50 mg TAB (NF) 50 MG TAB PO SCH (08:39)
[2020-03-06] MEDS: Lurasidone 120 mg TAB (*) PO SCH (17:03)
[2020-03-07] MEDS: Mirabegron 50 mg TAB (NF) 50 MG TAB PO SCH (07:43)
[2020-03-07] MEDS: Vitamin THERAPEUTIC TAB PO SCH (07:46)
[2020-03-07] MEDS: DULoxetine DR 20 mg CAP PO SCH (07:46)
[2020-03-07] MEDS: Topiramate 25 mg TAB (*) PO SCH ×2 (07:46→20:12)
[2020-03-07] MEDS: Nicotine GUM 4MG FRUIT FLAVOR PO PRN ×3 (07:48→20:12)
[2020-03-07] MEDS: Nicotine PATCH 21 MG/24 HR PATCH TRANSDERM SCH (08:08)
[2020-03-07] MEDS: clonazePAM 1 mg TAB(*) PO SCH ×2 (13:01→20:12)
[2020-03-07 13:21] LABS: Urine Benzodiazepine Screen None Detected (None Detect); Urine Buprenorphine Screen None Detected (None Detect); Urine Fentanyl Screen None Detected (None Detect); Urine Hydrocodone Screen None Detected (None Detect); Urine Opiates Screen None Detected (None Detect)
[2020-03-07] MEDS: Lurasidone 120 mg TAB (*) PO SCH (17:03)
[2020-03-08] MEDS: Nicotine GUM 4MG FRUIT FLAVOR PO PRN ×2 (07:44→14:06)
[2020-03-08] MEDS: clonazePAM 1 mg TAB(*) PO SCH (07:45)
[2020-03-08] MEDS: Vitamin THERAPEUTIC TAB PO SCH (07:45)
[2020-03-08] MEDS: DULoxetine DR 20 mg CAP PO SCH (07:45)
[2020-03-08] MEDS: Topiramate 25 mg TAB (*) PO SCH (07:45)
[2020-03-08] MEDS: Mirabegron 50 mg TAB (NF) 50 MG TAB PO SCH (07:46)
[2020-03-08 08:42] VITALS: BP 121/60
[2020-03-08] MEDS: Nicotine PATCH 21 MG/24 HR PATCH TRANSDERM SCH ×2 (10:54→14:08)
== END 2020-03-08 16:43 | disposition home or self-care (01) | DRG 897 ==
LOC: ED 12:18 → BSU 15:38
PROVIDERS: ADMIT Psychiatry & Neurology Psychiatry; ATTEND Psychiatry & Neurology Psychiatry